=== PATIENT | male | born 2000 | race Two or more races ===

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

== ENCOUNTER 2024-03-09 07:29 | Emergency (ER) | payer MEDICAID ==
[~2024-03-09] VITALS: Ht 167.6 cm; Wt 50.0 kg
[2024-03-09 07:29] VITALS: PULSE 0
[2024-03-09] MEDS ORDERED: EPINEPHrine HCL 1 MG/10 ML SYRG IV ONE (07:33)
--- NOTE | 2024-03-09 08:00 | ED.PDOC ---
CPR-HPI HPI Comments 24Y M presents to ED via EMS for chief complaint CPR. Per EMS, pt's family called 911 at 0700 today due to finding pt laying down next to bed unresponsive. EMS arrived on scene at 0708 and found pt with blood on face. Pt's family were poor historians and only history provided was drug use. Unknown when pt last used drugs. Pt was last seen normal last night (03/08/2024) at approximately 1900. Initial cardiac rhythm with EMS was V-fib and pt was shocked once prior to ED arrival. EMS intubated pt with 7.5. EMS also provided pt with 5 epis and 1 lidocaine prior to ED arrival. Last epi by EMS was given at 0724. Unknown when CPR was initiated by EMS. No blood sugar result was obtained by EMS. EMS arrived to ED at 0729. CPR continued on arrival to ED. Chief Complaint: CPR Time Seen by MD: 07:29 Primary Care Provider: UNKNOWN Reviewed Notes: Nurses Notes, Pipeline Superintendent Notes, Medications, Allergies Allergies: Coded Allergies: UNOBTAINABLE (Unverified , 03/09/24) CPR Information Source: Emergency Med Personnel Mode of Arrival: EMS Brought in by: EMS Timing: Minutes Duration: Down time prior EMS: (unknown) Onset: Unknown Available Hx: Unknown Inital rhythm: V-fib Treatment: CPR, Intubation, Defibrillation, Epinephrine Response: No response Associated signs and symptoms: Unknown Past Medical History PAST MEDICAL HISTORY: Denies Surgical History: Denies all surgeries Family History Family History: No family hx of Cancer, No family hx of DM, No family hx of Heart rigoberto, No family hx of HTN, No family hx ofKidney rigoberto, No family hx of Liver rigoberto, No family hx of Lung rigoberto, No family hx of Stroke Social History Smoker: Cigarettes Alcohol: Occasionally Drugs: Cocaine, Marijuana Lives In: Unknown Unable to Obtain due to: Medical Urgency, Intubated Physical Exam Exam Comments 24-year-old male presented to the emergency department by ambulance code 3 CPR in progress patient was found early this morning face down blood came in in his ear in his mouth no signs of trauma noted Patient found at his bedside not seen since 7:00 p.m. the night before General Appearance: Thin HEENT: Other (Patient is unconscious pupil dilated and fixed) Neck: Normal Inspection Respiratory: Other (Patient of neck intubated at the scene) Cardiovascular: Other (Pulseless) Breast Exam: Deferred Gastrointestinal: No Organomegaly, No Pulsatile Mass, Normal Bowel Sounds, Soft Genitalia: Deferred Pelvic: Deferred Rectal: Deferred Extremities: No calf tenderness, Normal capillary refill, Normal inspection, Normal range of motion, Non-tender, No pedal edema Neurologic: Flacid, Other (Unconscious) Cerebellar Function: Unable to Test Reflexes: None Skin: Dry, Mottled, Pallor Peripheral Pulses: 0 carotid (R), 0 carotid (L), 0 femoral (R), 0 femoral (L), 0 dorsalis pedis (R), 0 dorsalis pedis (L), 0 Radial (R), 0 Radial (L), 0 Brachial (R), 0 Brachial (L) Lymphatic: No Adenopathy Was a procedure done? Was a procedure done?: No Differential Dx CPR Differential Diagnosis: Cardiopulmonary arrest, Dysrhythmia, Electrolyte disorder, Respiratory Failure, Other (Possibility of drug-induced fentanyl) X-Ray, Labs, Meds, VS Vital Signs Date Time Temp Pulse Resp B/P (MAP) Pulse Ox O2 Delivery O2 Flow Rate FiO2 03/09/24 08:15 Ambu-Bag 03/09/24 07:29 91.7 0 X-Ray, Labs, Meds, VS Comment Course in the emergency department CPR continued for few minutes without any progress patient continue to be a systolic and pronounced at 7:40 a.m. Time of 1ST Reevaluation: 07:59 Reevaluation 1ST: Unchanged Patient Education/Counseling: Pt Unresponsive Family Education/Counseling: No Family Present Departure 1 Departure Time of Disposition: 10:50 Impression: Primary Impression: Unsuccessful cardiopulmonary resuscitation Disposition: 20 Condition: Other (Patient pronounced at 7: 40) Discharged With: Other ([facility]) Critical Care Note Critical Care Time?: No Heart Score Heart Score: Heart Score Response (Comments) Value History N/A 0 EKG N/A 0 Age <45 0 Risk Factors No known risk factors 0 Troponin N/A 0 Total 0 Stability Stability form required: No I personally scribed for KASSY PISANO MD ([email or web address]) on 03/09/24 at 08:00. Electronically submitted by Annalisa Vasquez ([facility]). I personally scribed for KASSY PISANO MD ([email or web address]) on 03/09/24 at 08:06. Electronically submitted by Annalisa Vasquez ([email or web address]). KASSY PISANO MD Mar 09, 2024 08:00
--- NOTE | 2024-03-09 08:15 | RESUS ---
CODE BLUE ASSESSSMENT History of Events History of Events: SECURED CODE BLUE ARRIVED AFTER FINDING PATIENT DOWN AFTER FAMILY CALLED 911 FOR FINDING PATIENT UNRESPONSIVE ON FLOOR BY BED. 5 ROUNDS EPI AND LIDOCAINE X 1. ARRIVED WITH BLOOD ON FACE. ARRIVED WITH I/O LEFT TIBIA AND SIZE 8.0 ETT THAT EMS PLACED. Initial Information Date: Mar 09, 2024 Time: 07:29 Location of Arrest: Arrest Witnessed: No CPR started by whom: EMS Pre-Hospital Care: ACLS Type of arrest: Cardiac, Adult, Unwitnessed Spontaneous Respirations: No Pulse Present: No Monitoring: Pulse Oximetry Crash Cart Opened and Supplies: Yes Airway Ventilation Breathing at Onset: Assisted Oxygen Delivery Method: Ambu-Bag Time of first Assisted Ventila: 07:29 Artificial Ventilation: Bag/Mask Intubation Size: 8.0 cuffed Intubated by: EMS Confirmation: Auscultation, Exhaled CO2 Circulation Circulation #1: Time: 07:29 Pulse Rate (adult): 0 Blood Pressure Systolic: 0 Blood Pressure Diastolic: 0 Circulation #2: Time: 07:31 Pulse Rate (adult): 0 Blood Pressure Systolic: 0 Blood Pressure Diastolic: 0 Temperature (Fahrenheit): 97.1 Circulation #3: Time: 07:33 Pulse Rate (adult): 0 Blood Pressure Systolic: 0 Blood Pressure Diastolic: 0 Circulation #4: Time: 07:35 Pulse Rate (adult): 0 Blood Pressure Systolic: 0 Blood Pressure Diastolic: 0 Circulation #5: Time: 07:37 Pulse Rate (adult): 0 Blood Pressure Systolic: 0 Blood Pressure Diastolic: 0 Circulation #6: Time: 07:39 Pulse Rate (adult): 0 Blood Pressure Systolic: 0 Blood Pressure Diastolic: 0 Circulation Comment: DR PISANO STATED TO STOP CPR Circulation #7: Time: 07:40 Circulation Comment: TIME OF CALLED BY DR PISANO Defibrillation Defbrillation : Time Defibrillator Applied: 07:30 EKG Rhythm: Asystole Procedure - IV Procedure - IV : IV start time: 07:34 IV Side: Right IV Location: Antecubital IV Catheter Type: Peripheral IV IV Placed: RN IV Gauge: 20 Procedure - Intraosseous Site of Intraosseous: Tibia josh-medial Intraosseous inserted by: EMS Medications & Response Medications and Responses #1: Medication Time: 07:31 ADULT Medications Given ADULT: Epinephrine 1 mg Route of Administration: IO Medications and Responses #2: Medication Time: 07:35 ADULT Medications Given ADULT: Epinephrine 1 mg, D50 (amp) (BLOOD SUGAR 34) Route of Administration: IV Medications and Responses #3: Medication Time: 07:38 ADULT Medications Given ADULT: Epinephrine 1 mg Route of Administration: IV Nurses Notes Kerrie Coma Scale Eye Opening: None (1) [place] Coma Scale Verbal: None (1) [place] Coma Scale Motor: None (1) Pupil Reaction: Non Reactive EKG Rhythm: Asystole Nurses Notes - Comment: BLOOD SUGAR CHECK AT 0735 WAS 34, 1 AMP D50% GIVEN AND RECHECKED AT 0737 BLOOD SUGAR READ 75 Time Code Ended Time Code Ended: 07:40 Post Arrest Status: Outcome of code: Unsuccessful Patient pronounced by: DR PISANO Time patient pronounced: 07:40 Family notified: Yes Code Team Present: EVER SUERO RN, SHO RN, KYARA RT, BOWEN RT, TIMO RN, DONNA RN, VALENTE RN, Ever Alba Mar 09, 2024 08:15
== END 2024-03-09 12:28 ==
LOC: EDBD 07:29 → EDUNIT# 07:29 → ER 07:32
DX: I46.9 Cardiac arrest, cause unspecified (principal); F17.210 Nicotine dependence, cigarettes, uncomplicated; F12.90 Cannabis use, unspecified, uncomplicated; F15.90 Other stimulant use, unspecified, uncomplicated
CPT/HCPCS: 92950; 99285; J0171; J7042